=== PATIENT | female | born 1990 ===

== ENCOUNTER 2024-05-21 23:00 | Inpatient (IN) ==
[2024-05-21] MEDS ORDERED: Lidocaine 1% VIAL 10 MG/ML 30 ML VIAL INJ PRN (23:57)
[2024-05-22 00:03] LABS: ABS Lymphocytes 2.3 10^3/uL (1.0-4.8); ABS Monocytes 0.7 10^3/uL (0.0-0.9); ABS Neutrophils 12.1 10^3/uL (1.5-7.6); Eosinophil % 0.2 %; Hematocrit 38.7 % (35-45); Hemoglobin 13.5 g/dL (11.5-14.3); Lymphocyte % 15.3 %; Mean Corpuscular Hemoglobin 31.9 pg (27-33); Mean Corpuscular Hgb Conc 34.9 g/dL (31-36); Mean Corpuscular Volume 91.6 fL (80-97); Mean Platelet Volume 9.6 fL (7.5-11.2); Platelet Count 219 10^3/uL (150-450); Red Blood Count 4.22 10^6/uL (3.63-4.92); Red Cell Distribution Width 13.1 % (12-17); White Blood Count 15.3 10^3/uL (3.8-11.8)
[2024-05-22] MEDS ORDERED: Glycerin ADULT 2.4 gm SUPP PR PRN (01:08)
[2024-05-22] MEDS: Witch Hazel PAD JAR TOPICAL PRN (02:10)
[2024-05-22] MEDS: Dibucaine 1% OINT 28.35 GM TUBE PR PRN (02:10)
[2024-05-22 03:47] LABS: Urine Benzodiazepine Screen None Detected (None Detect); Urine Cannabinoids Screen None Detected (None Detect); Urine Opiates Screen None Detected (None Detect)
[2024-05-22] MEDS: Buffered Lidocaine 1% SYRIN 1 ml INTRADERM ONE (08:39)
[2024-05-22] MEDS: Lactated Ringers 1000 ml BAG 1,000 ML IV SCH (08:39)
[2024-05-22] MEDS: Lactated Ringers 1000 ml BAG 1,000 ML IV ONE (08:40)
[2024-05-23 06:57] LABS: ABS Eosinophils 0.1 10^3/uL (0.0-0.5); ABS Lymphocytes 1.9 10^3/uL (1.0-4.8); ABS Monocytes 0.6 10^3/uL (0.0-0.9); ABS Neutrophils 7.8 10^3/uL (1.5-7.6); Eosinophil % 1.3 %; Hematocrit 33.8 % (35-45); Lymphocyte % 18.4 %; Mean Corpuscular Hemoglobin 32.9 pg (27-33); Mean Corpuscular Hgb Conc 35.6 g/dL (31-36); Mean Corpuscular Volume 92.4 fL (80-97); Mean Platelet Volume 9.2 fL (7.5-11.2); Platelet Count 170 10^3/uL (150-450); Red Blood Count 3.66 10^6/uL (3.63-4.92); Red Cell Distribution Width 13.2 % (12-17); White Blood Count 10.5 10^3/uL (3.8-11.8)
[2024-05-23 08:59] VITALS: BP 120/65
== END 2024-05-23 13:35 | disposition home or self-care (01) | DRG 807 ==
LOC: MCHOBOUT 23:00 → MCHOB 23:26
PROVIDERS: ADMIT Midwife; ATTEND Midwife